=== PATIENT | male | born 1980 | race Caucasian/White ===

== ENCOUNTER 2020-01-15 23:09 | Emergency (ER) | payer MEDICAID ==
[~2020-01-15] VITALS: Ht 180.3 cm; Wt 97.7 kg
[2020-01-15 23:13] VITALS: BP 126/63; Ht 180.3 cm; Wt 97.7 kg
[2020-01-15] MEDS ORDERED: NEURONTIN800 MG PO (23:16)
[2020-01-15] MEDS ORDERED: PERCOCET 10-321 EAC1 PO (23:16)
[2020-01-15] MEDS ORDERED: KLONOPIN1 MG PO (23:16)
[2020-01-15] MEDS ORDERED: [UNRECOGNIZED DRUG - OTHER] (23:17)
[2020-01-15] MEDS ORDERED: ELIQUIS5 MG PO (23:20)
[2020-01-15 23:54] LABS: BILIRUBIN NEGATIVE (NEGATIVE); GLUCOSE NEGATIVE (NEGATIVE); KETONE NEGATIVE (NEGATIVE); NITRITE NEGATIVE (NEGATIVE); UROBILINOGEN NORMAL (NORMAL)
[2020-01-16 00:05] LABS: HEMATOCRIT 41.9 % (42.0-54.0); HEMOGLOBIN 13.8 g/dL (13.5-17.5); MCH 30.3 pg (26.0-34.0); MCHC 32.9 g/dL (31.0-37.0); MCV 92.1 fL (80.0-100.0); MEAN PLATELET VOLUME 11.4 fL (7.4-10.4); PLATELET COUNT 217 10x3/uL (130-400); RBC 4.55 10x6/uL (4.20-6.10); RDW 14.4 % (11.5-14.5); WBC 9.8 10x3/uL (4.8-10.8)
[2020-01-16 00:09] LABS: CALC OSMOLALITY 278 mosm/kg (275-300); CALCIUM 9.1 mg/dL (8.5-10.1); CARBON DIOXIDE 26.2 mmol/L (21.0-32.0); CHLORIDE - SERUM 103 mmol/L (98-107); CREATININE - SERUM 1.1 mg/dL (0.6-1.3); GLUCOSE 92 mg/dL (74-106); POTASSIUM - SERUM 3.9 mmol/L (3.5-5.1); SODIUM 139 mmol/L (136-145); UREA NITROGEN 14 mg/dL (7-18); eGFR NON AFRICAN AMERICAN 78 mL/min (90-120)
[2020-01-16 00:15] LABS: ALKALINE PHOSPHATASE 71 U/L (30-120); ALT (SGPT) 31 U/L (10-68); BILIRUBIN - TOTAL 0.28 mg/dL (0.2-1.3); LIPASE 182 U/L (73-393); PROTEIN - SERUM 8.5 g/dL (6.4-8.2)
[2020-01-16 00:16] LABS: C-REACTIVE PROTEIN < 0.2 mg/dL (0.0-0.9)
[2020-01-16 00:23] LABS: UDS - AMPHET NEGATIVE QUAL (NEGATIVE); UDS - BARB NEGATIVE QUAL (NEGATIVE); UDS - BENZO POSITIVE QUAL (NEGATIVE); UDS - COCAINE NEGATIVE QUAL (NEGATIVE); UDS - OPIATE NEGATIVE QUAL (NEGATIVE); UDS - PCP NEGATIVE QUAL (NEGATIVE); UDS - THC POSITIVE QUAL (NEGATIVE)
[2020-01-16 00:50] LABS: EOSINOPHILS 2 % (0-7); LYMPHOCYTES 68 % (15-50); MONOCYTES 2 % (2-11); NEUTROPHILS 28 % (40-80); PLATELET ESTIMATE NORMAL
== END 2020-01-16 01:49 | disposition home or self-care (01) ==
LOC: D.ER 23:09
PROVIDERS: Family Medicine
DX: R59.1 Generalized enlarged lymph nodes (principal); I82.509 Chronic embolism and thrombosis of unspecified deep veins of unspecified lower extremity; B20 Human immunodeficiency virus [HIV] disease